=== PATIENT | male | born 1975 | race Hispanic/Latino ===

== ENCOUNTER 2017-07-09 11:08 | Emergency (ER) | payer MEDICAID ==
[2017-07-09 11:28] LABS: BASOPHILS % (AUTO) 0.7 % (0.0-5.0); EOSINOPHILS % (AUTO) 0.2 % (0.0-8.0); HEMATOCRIT 34.3 % (42-54); LYMPHOCYTES % (AUTO) 27.8 % (21.0-51.0); MEAN CORPUSCULAR HGB CONC 34.8 g/dL (32.0-36.0); MEAN CORPUSCULAR VOLUME 91.9 fL (79-99); MONOCYTES % (AUTO) 10.5 % (3.0-13.0); NEUTROPHILS % (AUTO) 60.8 % (40.0-77.0); NUCLEATED RED BLOOD CELLS 0.2 % (0.0-0.19); PLATELET COUNT (AUTO) 238 K/uL (130-400); RED BLOOD CELL COUNT(AUTO) 3.73 MIL/uL (4.50-6.20); RED CELL DISTRIBUTION WIDTH 14.3 % (11.0-15.5); WHITE BLOOD COUNT (AUTO) 8.7 K/uL (4.8-10.8)
[2017-07-09 11:37] LABS: CREATININE 1.3 mg/dL (0.5-1.5)
[2017-07-09 11:43] LABS: ALBUMIN 3.2 g/dL (3.5-5.0); BILIRUBIN,TOTAL 0.3 mg/dL (0.2-1.0); TOTAL PROTEIN, SERUM 7.2 g/dL (6.0-8.3)
== END 2017-07-09 15:59 | disposition home or self-care (01) ==
LOC: EDH 11:08
DX: G40.909 Epilepsy, unspecified, not intractable, without status epilepticus (principal); S01.552A Open bite of oral cavity, initial encounter; X58.XXXA Exposure to other specified factors, initial encounter; Y93.89 Activity, other specified; Y92.89 Other specified places as the place of occurrence of the external cause; Y99.8 Other external cause status
CPT/HCPCS: 36415; 80053; 80164; 85025

== ENCOUNTER 2018-09-01 16:30 | Inpatient (IN) | payer MEDICAID ==
[~2018-09-01] VITALS: Ht 165.1 cm; Wt 114.8 kg
[2018-09-01] MEDS ORDERED: SODIUM CHLORIDE 0.9% 1000ML 1,000 ML IV ONE (17:56)
[2018-09-01 18:04] LABS: BASOPHILS % (AUTO) 0.3 % (0.0-5.0); HEMATOCRIT 37.6 % (42-54); LYMPHOCYTES % (AUTO) 10.3 % (21.0-51.0); MEAN CORPUSCULAR VOLUME 88.3 fL (79-99); MONOCYTES % (AUTO) 11.6 % (3.0-13.0); NEUTROPHILS % (AUTO) 77.8 % (40.0-77.0); PLATELET COUNT (AUTO) 139 K/uL (130-400); RED BLOOD CELL COUNT(AUTO) 4.26 MIL/uL (4.50-6.20); RED CELL DISTRIBUTION WIDTH 14.3 % (11.0-15.5); WHITE BLOOD COUNT (AUTO) 13.3 K/uL (4.8-10.8)
[2018-09-01 18:12] LABS: APPEARANCE,URINE CLEAR (CLEAR); BILIRUBIN,URINE SMALL (NEGATIVE); COLOR,URINE YELLOW (YELLOW); GLUCOSE, URINE (UA) 100 mg/dL (NEGATIVE); KETONES,URINE 5 mg/dL (NEGATIVE); LEUKOCYTE ESTERASE ,URINE MODERATE (NEGATIVE); NITRATE,URINE NEGATIVE (NEGATIVE); OCCULT BLOOD,URINE LARGE (NEGATIVE); PROTEIN,URINE 30 (NEGATIVE)
[2018-09-01 18:13] LABS: AMPHET/METH SCREEN,URINE NEGATIVE (NEGATIVE); BARBITURATE SCREEN, URINE NEGATIVE (NEGATIVE); BENZODIAZEPINES SCREEN,URINE NEGATIVE (NEGATIVE); CANNABINOID SCREEN,URINE NEGATIVE (NEGATIVE); COCAINE SCREEN,URINE NEGATIVE (NEGATIVE); OPIATE SCREEN,URINE NEGATIVE (NEGATIVE); PHENCYCLIDINE SCREEN,URINE NEGATIVE (NEGATIVE)
[2018-09-01 18:22] LABS: CARBON DIOXIDE 27 mmol/L (21-32); CHLORIDE 101 mmol/L (101-111); CREATININE 1.4 mg/dL (0.5-1.5); GLOMERULAR FILTR. RATE CALC 59 mL/min (>60); GLUCOSE,RANDOM 119 mg/dL (70-105); POTASSIUM 3.7 mmol/L (3.5-5.1); SODIUM SERUM 139 mmol/L (136-145); UREA NITROGEN, BLOOD 12 mg/dL (7-18)
[2018-09-01 18:26] LABS: ALANINE AMINOTRANSFERASE 31 U/L (12-78); ALBUMIN 3.1 g/dL (3.5-5.0); ALCOHOL, BLOOD < 3 mg/dL (0-10); ASPARTATE AMINOTRANSFERASE 29 U/L (10-37); BILIRUBIN,TOTAL 0.5 mg/dL (0.2-1.0); TOTAL PROTEIN, SERUM 7.2 g/dL (6.0-8.3)
[2018-09-01 18:34] LABS: ACETAMINOPHEN < 1 mcg/mL (10-29); SALICYLATE < 2.8 mg/dL (2.8-20.0); VALPROIC ACID 34 mcg/mL (50-100)
[2018-09-01 18:37] LABS: BACTERIA,URINE Few /HPF (None Seen)
[2018-09-01 18:38] LABS: SQUAMOUS EPITHELIAL CELL,UR Rare /HPF (0-2)
[2018-09-01] MEDS ORDERED: CEFTRIAXONE SODIUM 1 GM ONE (19:14)
[2018-09-01] MEDS ORDERED: SODIUM CHLORIDE 0.9% 50 ML IV ONE (19:15)
[2018-09-01] MEDS ORDERED: ACETAMINOPHEN 325 MG TAB ONE (20:41)
[2018-09-01] MEDS: CEFTRIAXONE SODIUM 1 GM IV SCH (21:15)
[2018-09-01] MEDS: SODIUM CHLORIDE 0.9% 1000ML 1,000 ML IV SCH (21:15)
[2018-09-01] MEDS ORDERED: ACETAMINOPHEN 325 MG TAB PO PRN ×2 (21:15)
[2018-09-01] MEDS ORDERED: ONDANSETRON HCL 4 MG/2 ML VIAL IV PRN (21:15)
[2018-09-01] MEDS ORDERED: DIPHENHYDRAMINE HCL 25 MG CAPSULE ONE (21:29)
[2018-09-01] MEDS ORDERED: HALOPERIDOL LACTATE 5 MG/ML VIAL ONE (21:29)
[2018-09-01 23:00] VITALS: BP 100/56
[2018-09-01] MEDS ORDERED: RISP1TAB89 PO (23:16)
[2018-09-01] MEDS ORDERED: DIVA-78 PO (23:16)
[2018-09-01] MEDS ORDERED: LEVE10006 PO (23:16)
[2018-09-01] MEDS ORDERED: ERGO2000 PO (23:16)
[2018-09-01] MEDS ORDERED: TRAZ-185 PO (23:16)
[2018-09-01] MEDS ORDERED: ESCI20TA36 PO (23:16)
[2018-09-01] MEDS ORDERED: BENZ1TAB10 PO (23:16)
[2018-09-01] MEDS ORDERED: TYL3 PO (23:16)
[2018-09-01] MEDS ORDERED: BACL20TA PO (23:16)
[2018-09-01] MEDS ORDERED: ATOR40TA71 PO (23:16)
[2018-09-01] MEDS ORDERED: TERB250T51 PO (23:16)
[2018-09-02 04:00] VITALS: BP 112/54
[2018-09-02] MEDS: SODIUM CHLORIDE 0.9% 1000ML 1,000 ML IV SCH ×3 (06:08→21:28)
[2018-09-02 08:00] VITALS: BP 93/54
[2018-09-02] MEDS: **HM** TERBINAFINE 250MG PO SCH (09:00)
[2018-09-02] MEDS: BENZTROPINE MESYLATE 0.5 MG TAB PO SCH ×2 (09:59→21:27)
[2018-09-02] MEDS: FAMOTIDINE/PF 20 MG/2 ML VIAL IV SCH ×2 (09:59→21:27)
[2018-09-02] MEDS: LEVETIRACETAM 500 MG TABLET PO SCH ×2 (09:59→21:49)
[2018-09-02 12:00] VITALS: BP 112/60
--- NOTE | 2018-09-02 15:13 | NUR ---
INTRAVENOUS FLUIDS Rate adjusted down to 70mL/hr as ordered by Dr. Perez. IV site healthy.
[2018-09-02 15:30] VITALS: BP 103/51
[2018-09-02] MEDS: CEFTRIAXONE SODIUM 1 GM IV SCH (21:26)
[2018-09-02] MEDS: DIVALPROEX SODIUM 250 MG TABLET.DR PO SCH (21:27)
[2018-09-02] MEDS: ATORVASTATIN CALCIUM 40 MG TABLET PO SCH (21:27)
[2018-09-02] MEDS: RISPERIDONE 1 MG TABLET PO SCH (21:27)
[2018-09-02] MEDS: CITALOPRAM 20 MG TABLET PO SCH (21:27)
[2018-09-02] MEDS: TRAZODONE HCL 50 MG TAB PO SCH (21:27)
[2018-09-02 21:40] VITALS: BP 104/64
[2018-09-03 05:08] VITALS: BP 83/45
[2018-09-03 06:23] LABS: HEMATOCRIT 32.8 % (42-54); MEAN CORPUSCULAR HEMOGLOBIN 30.5 pg (27.0-33.0); MEAN CORPUSCULAR HGB CONC 34.3 g/dL (32.0-36.0); MEAN CORPUSCULAR VOLUME 88.9 fL (79-99); PLATELET COUNT (AUTO) 154 K/uL (130-400); RED BLOOD CELL COUNT(AUTO) 3.69 MIL/uL (4.50-6.20); RED CELL DISTRIBUTION WIDTH 14.5 % (11.0-15.5); WHITE BLOOD COUNT (AUTO) 11.6 K/uL (4.8-10.8)
[2018-09-03 06:42] LABS: ALBUMIN 2.5 g/dL (3.5-5.0); BILIRUBIN,TOTAL 0.5 mg/dL (0.2-1.0); CREATININE 1.3 mg/dL (0.5-1.5); POTASSIUM 3.7 mmol/L (3.5-5.1); TOTAL PROTEIN, SERUM 6.4 g/dL (6.0-8.3)
[2018-09-03 08:00] VITALS: BP 107/58
[2018-09-03] MEDS: **HM** TERBINAFINE 250MG PO SCH (09:00)
[2018-09-03] MEDS ORDERED: MIDODRINE HCL 5 MG TABLET PO PRN (10:00)
[2018-09-03] MEDS: BENZTROPINE MESYLATE 0.5 MG TAB PO SCH ×2 (10:12→21:04)
[2018-09-03] MEDS: LEVETIRACETAM 500 MG TABLET PO SCH ×2 (10:12→21:03)
[2018-09-03] MEDS: FAMOTIDINE/PF 20 MG/2 ML VIAL IV SCH ×2 (10:12→20:59)
[2018-09-03] MEDS: SODIUM CHLORIDE 0.9% 1000ML 1,000 ML IV SCH ×2 (11:31→21:04)
[2018-09-03 12:00] VITALS: BP 101/56
--- NOTE | 2018-09-03 16:16 | NUR ---
D/C ANTONIA GODOY obtained information from medical record. pt from the [facility]. plan to return at d/c Addendum: 09/03/18 at 1617 by YAMILETH DUFF CM Amended: Links added.
[2018-09-03 20:18] VITALS: BP 86/52
[2018-09-03] MEDS: CEFTRIAXONE SODIUM 1 GM IV SCH (21:00)
[2018-09-03] MEDS: CITALOPRAM 20 MG TABLET PO SCH (21:03)
[2018-09-03] MEDS: ATORVASTATIN CALCIUM 40 MG TABLET PO SCH (21:03)
[2018-09-03] MEDS: TRAZODONE HCL 50 MG TAB PO SCH (21:03)
[2018-09-03] MEDS: RISPERIDONE 1 MG TABLET PO SCH (21:04)
[2018-09-03] MEDS: DIVALPROEX SODIUM 250 MG TABLET.DR PO SCH (21:04)
[2018-09-04 00:41] VITALS: BP 110/56
[2018-09-04] MEDS: SODIUM CHLORIDE 0.9% 1000ML 1,000 ML IV SCH ×3 (01:15→19:07)
[2018-09-04 04:39] VITALS: BP 97/41
[2018-09-04 05:57] LABS: MEAN CORPUSCULAR HEMOGLOBIN 30.7 pg (27.0-33.0); MEAN CORPUSCULAR HGB CONC 34.7 g/dL (32.0-36.0); MEAN CORPUSCULAR VOLUME 88.5 fL (79-99); PLATELET COUNT (AUTO) 183 K/uL (130-400); RED CELL DISTRIBUTION WIDTH 14.6 % (11.0-15.5); WHITE BLOOD COUNT (AUTO) 7.6 K/uL (4.8-10.8)
[2018-09-04 06:04] LABS: CREATININE 1.1 mg/dL (0.5-1.5); POTASSIUM 3.6 mmol/L (3.5-5.1)
[2018-09-04 08:40] VITALS: BP 100/59
[2018-09-04] MEDS: **HM** TERBINAFINE 250MG PO SCH (09:00)
[2018-09-04] MEDS: FAMOTIDINE/PF 20 MG/2 ML VIAL IV SCH ×3 (09:00→20:40)
[2018-09-04] MEDS: BENZTROPINE MESYLATE 0.5 MG TAB PO SCH (09:03)
[2018-09-04] MEDS: LEVETIRACETAM 500 MG TABLET PO SCH ×2 (09:03→20:45)
[2018-09-04] MEDS ORDERED: CEFD300C3 PO (13:31)
[2018-09-04 13:34] VITALS: BP 132/81
--- NOTE | 2018-09-04 15:57 | NUR ---
CHANGE IN DISCHARGE PLANS CALL MADE TO [facility], ADIVSED BY STAFF THAT PATIENT IS UNABLE TO RETURN THERE- PT MUST FEED BATH AND TOILET THEMSELVES. STAFF STATES THAT A FEW WEEKS AGO PT STARTED DECLINING IN SELF CARE AND REQUIRING ASSISTANCE WITH ADLS. PHONE NUMBERS ([phone]) DIRECTOR OF [facility] Ilia CASANOVA, [facility] CM, CONTACTED, STATES HE WAS NOTIFIED THAT [facility] COULD NOT TAKE HIM BACK AND HE WAS ALSO TOLD THAT [facility] WAS WORKING WITH ANOTHER AGENCY TO FIND HIM PLACEMENT GOT NUMBER OF FAX AT [facility] FOR [facility] FORM DIRECT AND PRIMARY RN AWARE
[2018-09-04 16:56] VITALS: BP 85/49
--- NOTE | 2018-09-04 19:20 | NUR ---
DR CARL CAME IN TO SEE THE PATIENT AND MADE CHANGES TO THE MEDICATION REGIMEN.
[2018-09-04] MEDS: CEFTRIAXONE SODIUM 1 GM IV SCH (20:39)
[2018-09-04] MEDS: ATORVASTATIN CALCIUM 40 MG TABLET PO SCH (20:45)
[2018-09-04] MEDS: DIVALPROEX SODIUM 250 MG TABLET.DR PO SCH (20:45)
[2018-09-04 20:52] VITALS: BP 109/72
[2018-09-05 00:21] VITALS: BP 103/53
[2018-09-05 04:47] VITALS: BP 104/57
[2018-09-05 07:30] VITALS: BP 100/44
[2018-09-05] MEDS: **HM** TERBINAFINE 250MG PO SCH (09:00)
--- NOTE | 2018-09-05 09:05 | NUR ---
CM DISCUSSED DC WITH DR. CARL SAW DR. CARL , WHO 'WHY WHY WAS THIS MAN NOT RELAESED BACK TO HIS [facility]? HE IS SELF CARE AND ABLE TO BE DISCHARGED' MED CHANGES WERE DONE BY DR. CARL, PT AWAKE AND ALERT TODAY WILL ASSESS AFTER MORNING CARE AND SEND INFO TO [facility] AND [facility]
[2018-09-05] MEDS: SODIUM CHLORIDE 0.9% 1000ML 1,000 ML IV SCH ×2 (09:33→11:51)
[2018-09-05] MEDS: LEVETIRACETAM 500 MG TABLET PO SCH ×2 (09:33→20:45)
[2018-09-05] MEDS: FAMOTIDINE/PF 20 MG/2 ML VIAL IV SCH ×2 (09:33→20:45)
[2018-09-05] MEDS: DIVALPROEX SODIUM 250 MG TABLET.DR PO SCH ×2 (09:34→20:45)
[2018-09-05 11:00] VITALS: BP 105/70
--- NOTE | 2018-09-05 12:02 | NUR ---
PATIENT WAS ABLE TO SHOWER, FEED HIMSELF AND WALK BY HIMSELF INDEPENDENTLY. PATIENT HAS BEEN CONTINENT AND ABLE TO CARE FOR HIMSELF.
--- NOTE | 2018-09-05 12:15 | NUR ---
CASE REIVEWED W/ PT'S AUCTIONEER TOBACCO FROM [facility] REVIEWED NOTES, INC PT NOTES- NEEDS WALKER' ALL ITEMS PRINTED AND READY TO FAX. CALLED [facility] SPOKE TO CHANELL SWAIN. [facility] PT WAS AT FOR SURGERY, DCD TO [facility] FOR > 30 DAYS, DC FROM [facility] LAST THRUSDAY, BACK TO [facility], NOT SELF CARE, SENT TO [facility]. CHANELL GIBBONS WILL COME TO [facility] TO HELP MAKE PLAN FOR PLACMENT. CM TO FOLLOW UP, ALEKSANDER TINEO AWARE
--- NOTE | 2018-09-05 14:30 | NUR ---
BINDING PRINTER FROM [facility] HERE BINDING PRINTER CHANELL SWAIN; DISCUSSED DC CHALLENGES. REVIEWED MEDICATION CHANGES, REVIEWED SELF CARE ASSESSMENT/DOCUMENTATION. STATES SHE WILL WORK ON GETTING PATIENT ACCEPTED BACK TO SAME FACILITY.
[2018-09-05 16:00] VITALS: BP 140/57
[2018-09-05 19:30] VITALS: BP 99/59
[2018-09-05] MEDS: ATORVASTATIN CALCIUM 40 MG TABLET PO SCH (20:45)
[2018-09-05] MEDS: CEFTRIAXONE SODIUM 1 GM IV SCH (20:45)
[2018-09-06] VITALS: BP 101/63
[2018-09-06 04:00] VITALS: BP 108/68
[2018-09-06 05:37] LABS: HEMATOCRIT 32.8 % (42-54); MEAN CORPUSCULAR HEMOGLOBIN 30.4 pg (27.0-33.0); MEAN CORPUSCULAR HGB CONC 34.4 g/dL (32.0-36.0); MEAN CORPUSCULAR VOLUME 88.4 fL (79-99); NUCLEATED RED BLOOD CELLS 0.1 % (0.0-0.19); PLATELET COUNT (AUTO) 248 K/uL (130-400); RED BLOOD CELL COUNT(AUTO) 3.71 MIL/uL (4.50-6.20); RED CELL DISTRIBUTION WIDTH 14.4 % (11.0-15.5); WHITE BLOOD COUNT (AUTO) 7.2 K/uL (4.8-10.8)
[2018-09-06 05:59] LABS: CREATININE 1.1 mg/dL (0.5-1.5); POTASSIUM 3.6 mmol/L (3.5-5.1)
[2018-09-06 08:00] VITALS: BP 112/61
[2018-09-06] MEDS: FAMOTIDINE/PF 20 MG/2 ML VIAL IV SCH ×2 (08:47→20:53)
[2018-09-06] MEDS: LEVETIRACETAM 500 MG TABLET PO SCH ×2 (08:47→20:52)
[2018-09-06] MEDS: **HM** TERBINAFINE 250MG PO SCH (08:48)
[2018-09-06] MEDS: SODIUM CHLORIDE 0.9% 1000ML 1,000 ML IV SCH (11:31)
[2018-09-06 12:00] VITALS: BP 117/48
[2018-09-06 16:00] VITALS: BP 132/62
[2018-09-06 20:00] VITALS: BP 116/63
[2018-09-06] MEDS: ATORVASTATIN CALCIUM 40 MG TABLET PO SCH (20:52)
[2018-09-06] MEDS: DIVALPROEX SODIUM 250 MG TABLET.DR PO SCH (20:52)
[2018-09-06] MEDS: CEFTRIAXONE SODIUM 1 GM IV SCH (20:53)
[2018-09-07] VITALS (8 sets, daily range): BP systolic 101–124; BP diastolic 50–65
[2018-09-07] MEDS: SODIUM CHLORIDE 0.9% 1000ML 1,000 ML IV SCH ×2 (02:42→11:52)
[2018-09-07 05:00] LABS: HEMATOCRIT 34.2 % (42-54); MEAN CORPUSCULAR HEMOGLOBIN 30.1 pg (27.0-33.0); MEAN CORPUSCULAR HGB CONC 34.2 g/dL (32.0-36.0); MEAN CORPUSCULAR VOLUME 87.9 fL (79-99); NUCLEATED RED BLOOD CELLS 0.1 % (0.0-0.19); PLATELET COUNT (AUTO) 260 K/uL (130-400); RED BLOOD CELL COUNT(AUTO) 3.89 MIL/uL (4.50-6.20); RED CELL DISTRIBUTION WIDTH 14.2 % (11.0-15.5); WHITE BLOOD COUNT (AUTO) 7.7 K/uL (4.8-10.8)
[2018-09-07 05:38] LABS: POTASSIUM 3.4 mmol/L (3.5-5.1)
[2018-09-07] MEDS: **HM** TERBINAFINE 250MG PO SCH (09:00)
[2018-09-07] MEDS: FAMOTIDINE/PF 20 MG/2 ML VIAL IV SCH ×2 (09:36→20:10)
[2018-09-07] MEDS: LEVETIRACETAM 500 MG TABLET PO SCH ×2 (09:37→20:10)
--- NOTE | 2018-09-07 17:59 | NUR ---
Nutrition Screen: Pt triggered for nutrition screen based on LOS. Pt is on a heart healthy diet. Pt with good oral intake. Labs reviewed. BMI 42.1 (morbid obese). Pt with no skin breakdown. LBM 09/06/18. Pt is pending DC to facility. Pt with no noted nutrition deficit at this time.
[2018-09-07] MEDS: ATORVASTATIN CALCIUM 40 MG TABLET PO SCH (20:10)
[2018-09-07] MEDS: DIVALPROEX SODIUM 250 MG TABLET.DR PO SCH (20:10)
[2018-09-07] MEDS: CEFTRIAXONE SODIUM 1 GM IV SCH (20:11)
[2018-09-08 03:48] VITALS: BP 97/60
[2018-09-08] MEDS: SODIUM CHLORIDE 0.9% 1000ML 1,000 ML IV SCH (04:53)
[2018-09-08 07:00] VITALS: BP 116/61
[2018-09-08] MEDS: **HM** TERBINAFINE 250MG PO SCH (09:00)
[2018-09-08] MEDS: FAMOTIDINE/PF 20 MG/2 ML VIAL IV SCH (09:40)
[2018-09-08] MEDS: LEVETIRACETAM 500 MG TABLET PO SCH (09:40)
[2018-09-08 11:00] VITALS: BP 108/68
--- NOTE | 2018-09-08 14:55 | NUR ---
DISCHARGE PLANNING UPDATE [facility]- SHE STATED HER ADMIN WAS OUT OF THE BUILDING BUT WOULD BE BACK SHORTLY. CM ASKED IF EVERYTHING WAS READY FOR THE PATIENT- CM WAS ADVISED [facility] WOULD BE READY 09/08/18 CONFIRMED THAT PT IS INDEPENDENT; ALL INFO WAS FAXED ON TUESDAY. AND THAT [facility] WOULD BE READY TO RECIEVE ON 09/08/18 PENDING CALL BACK [facility]
[2018-09-08 16:00] VITALS: BP 112/63
[2018-09-08 20:00] VITALS: BP 122/75
--- NOTE | 2018-09-08 20:30 | NUR ---
Discharge note Discharge instruction to patient and nurse to nurse report given by the day shift nurse. Pt. d/c via wheelchair. Left hospital with shelter staff. Walker was not brought by the pt., since the shelter staff brought their own walker. No apparent distress or discomfort noted.
== END 2018-09-08 20:40 | disposition home or self-care (01) | DRG 720 ==
LOC: EDH 16:30 → OBSVTOIN 16:31 → EDHIP 16:31 → 3CH 21:40
PROVIDERS: ADMIT Internal Medicine; ATTEND Internal Medicine
DX: A41.9 Sepsis, unspecified organism (principal); G93.41 Metabolic encephalopathy; F20.9 Schizophrenia, unspecified; N39.0 Urinary tract infection, site not specified; G40.909 Epilepsy, unspecified, not intractable, without status epilepticus; F32.9 Major depressive disorder, single episode, unspecified; F41.9 Anxiety disorder, unspecified
CPT/HCPCS: 36415; 70450; 71045; 80048; 80053; 80164; 80305; 81001; 83605; 85025; 85027; 87040; 87088; 87804; 97039; A4218; G0378; G0480; G0481; J0696; J1630; J3490; J7030; Q0163

== ENCOUNTER 2019-02-27 21:23 | Emergency (ER) | payer MEDICAID ==
[~2019-02-27 21:23] MED LIST: ATOR40TA71 PO; CEFD300C3 PO; DIVA-78 PO; ERGO2000 PO; LEVE10006 PO; TERB250T51 PO
== END 2019-02-27 22:32 | disposition home or self-care (01) ==
LOC: EDH 21:23
DX: G40.909 Epilepsy, unspecified, not intractable, without status epilepticus (principal); F41.9 Anxiety disorder, unspecified; F32.9 Major depressive disorder, single episode, unspecified; F20.9 Schizophrenia, unspecified; Z79.899 Other long term (current) drug therapy
CPT/HCPCS: 82948